=== PATIENT | male | born 1935 | race Caucasian/White ===

== ENCOUNTER 2016-10-31 16:27 | Emergency (ER) | payer MEDICARE, OTHER ==
[2016-10-31 16:42] VITALS: BP 158/76
--- NOTE | 2016-10-31 16:57 | ERNOTE ---
Head Injury HPI - Narrative Date of Service: 10/31/16 - General Injury to: head Time Seen by Provider: 10/31/16 16:44 Source: patient Exam Limitations: no limitations - Immun/Allergies/Home Medications Immunization: IMMUNIZATION HX Immunizations Up to Date Yes History of Influenza Vaccine Yes Hx Pneumococcal Vaccination Yes Allergies/Adverse Reactions: Allergies Allergy/AdvReac Type Severity Reaction Status Date / Time sulfamethoxazole Allergy Severe SHUT DOWN Verified 10/31/16 16:42 [From Bactrim] KIDNEYS trimethoprim [From Bactrim] Allergy Severe SHUT DOWN Verified 10/31/16 16:42 KIDNEYS Home Medications: HOME MEDICATIONS Aspirin [Aspir 81] 81 mg PO DAILY 08/19/12 [Last Taken Unknown] Cholecalciferol (Vitamin D3) [Vitamin D] 1 tab PO DAILY 08/19/12 [Last Taken Unknown] Furosemide 20 mg PO DAILY 08/19/12 [Last Taken Unknown] Metoprolol Tartrate 25 mg PO BID 08/19/12 [Last Taken 12/05/15 07:00] Simvastatin 40 mg PO HS 08/19/12 [Last Taken Unknown] Beta-Carotene(A) W-C , E/Min [Ocuvite] 1 tab PO DAILY 11/29/15 [Last Taken Unknown] Calcium Carb&Cit/Mag12/Vit D3 [Calcium 500 mg Tablet] 1 each PO BID 11/29/15 [ Last Taken Unknown] Fluticasone Propionate [Flonase] 1 - 2 spray NS DAILY PRN 11/29/15 [Last Taken Unknown] Glucosamine/Chondroitin Sulf A [Glucosamine Chondroitin Cap] 1 each PO BID 11/28 [Last Taken Unknown] Multivit-Min/FA/Lycopene/Lut [Centrum Silver Tablet] 1 each PO DAILY 11/29/15 [ Last Taken Unknown] - History of Present Illness Narrative: Pt. comes in with c/o falling and hitting the superior aspect of his head on the curb. Pt. denies any dizziness, nausea,vomiting, headache, vision changes, SOB, or CP. Pt. denies any prehospital treatment but does have a laceration that he placed pressure on that has not stopped bleeding. Review of Systems - Review of Systems Constitutional: Present: no symptoms reported. Absent: recent illness, fever, chills, fatigue, malaise, weight loss EYE: Present: no symptoms reported ENT: Present: no symptoms reported Respiratory: Present: no symptoms reported. Absent: shortness of breath, cough , wheezing Cardiology: Present: no symptoms reported. Absent: chest pain, palpitations, edema Gastrointestinal/Abdominal: Present: no symptoms reported. Absent: nausea, vomiting Genitourinary: Present: no symptoms reported Musculoskeletal: Present: no symptoms reported. Absent: back pain, neck pain, joint pain Skin: Present: other - laceration L superior scalp Neurological: Present: no symptoms reported. Absent: headache, dizziness/light- headedness, numbness, tingling All Other Systems: All systems neg except as marked - Patient's Past Medical History Patient History - Cardiac/Respiratory: Hypertension, Hyperlipidemia Patient History - Cancer: No Hx of Cancer Patient History - Surgical Procedures: Cataracts, Total Hip Replacement, Total Knee Replacement, Other Patient History - Other: None - Family History mom Family History - Medical: Family History - Cardiac/Respiratory: Coronary Heart Disease dad Family History - Medical: Family History - Cardiac/Respiratory: Coronary Heart Disease - Social History Living Situations: home Abuse History: No History of abuse Psych History: No pertinent hx Alcohol Use: rarely Drug Use: none - Immunizations Immunizations Up to Date: Yes Hx Pneumococcal Vaccination: Yes History of Influenza Vaccine: Yes Physical Exam - Physical Exam General Appearance: Present: wd/wn, alert, no apparent distress Eye Exam: Normal inspection: bilateral, PERRL: bilateral, EOMI: bilateral Ears, Nose, Throat: Present: normal ENT inspection, normal pharynx Neck: Present: normal inspection, nontender, supple, full range of motion. Absent: lymphadenopathy (R), lymphadenopathy (L), tender lateral, tender posterior midline Respiratory: Present: no respiratory distress, normal breath sounds, no accessory muscle use, chest nontender, lungs clear Cardiovascular/Chest: Present: regular rate, rhythm, no murmur, normal peripheral pulses Gastrointestinal/Abdominal: Present: normal bowel sounds, nontender Back Exam: Present: normal inspection, normal range of motion, no vertebral tenderness Extremity Exam: Present: normal inspection, non-tender, normal range of motion, no edema Neurological Exam: Present: alert, oriented, normal mood/affect, no motor/ sensory deficits Skin Exam: Present: normal color, warm/dry, other - Laceration Y shaped on superior forehead 2cm each arm of the Y in length ED Progress - Date and Time Seen: Date and Time: 10/31/16 17:43 Suggested to pt. that he use a cane when walking for strength and that he speak with his PCP reguarding fall prevention and possible PT for strengthening. - Results and Orders Patient's Lab Results:: I have reviewed the patient's lab results. - Vital Signs Patient's Vital Signs:: I have reviewed the patient's vital signs. Vital Signs: Vital Signs 10/31/16 16:38 Temperature 37.1 C Pulse Rate 75 Respiratory 12 Rate Blood Pressure 158/76 O2 Sat by Pulse 94 Oximetry - CT/Ultrasound CT/Ultrasound Narrative: CT head negative for acute abnormalities - Progress/Reassessment Chief Complaint: Head Injury Progress:: Improved Procedures Right Upper Anterior Head Anesthesia: 1% Lidocaine I & D Prep: betadine prep Wound's Depth/Shape: into subcutaneous, stellate Wound Explored: clean, to base, no foreign body Wound Intervention: irrigated w/saline, multiple flaps aligned Distal NVT: neuro/vasc intact Wound Repaired With: roxy Number of Sutures: 8 - roxy Layer Closure: Simple Estimated blood loss (ml): 15 Wound Dressing: sterile dressing applied Complications: Pt sera procedure well Comment: wound edges approximated well with roxy in area where sutures would have pulled and would have had delayed wound healing, I feel with roxy will have good wound healing and little scarring. Departure Clinical Impression: Laceration of scalp Qualifiers: Encounter type: initial encounter Qualified Code(s): S01.01XA - Laceration without foreign body of scalp, initial encounter - Departure Disposition: Home self-care Condition: Good Instructions: Laceration Care, Adult, [id number] Additional Instructions: Please follow up with primary care provider in 7-10 days for staple removal and wound check. Return to ER if you develop blurred or double vision, nausea or vomiting. Referrals: Rima Mcginnis MD [Primary Care Provider] -
[2016-10-31 17:35] LABS: Prothrombin Time (Patient) 11.4 Seconds (9.4-11.4)
[2016-10-31 17:36] LABS: INR 1.1 INR (0.90-1.10); Partial Thrombolplastin Time 29.1 Seconds (24-32)
--- OUTSIDE RECORDS SUMMARY | 2016-10-31 17:40 | XMS REPORT | Continuity of Care Document ---
:1935 Author Organization [facility] ([facility]) Address [address] [place] [address] Phone [phone] Care Team Providers Name Role Phone Rick Pascal Primary Care Provider [phone] Source Comments This disclosure is being made pursuant to the Care Everywhere program, applicable federal and state laws, and may not contain all informaitonavailable regarding this patient.[facility] ([facility]) Active Allergies and Adverse Reactions Allergen Noted Date Severity Reactions Comments Sulfamethoxazole 04/19/2010 Renal failure Current Medications Prescription Sig. Disp. Refills Start Date End Date Status ascorbic acid take 500 mg by mouth Active (ASCORBIC ACID) 500 mg daily. tablet aspirin 81 mg tablet take 81 mg by mouth Active daily. VIT C/DL-E Take 2 Caps by mouth Active AC/LUT/COPPER/ZNOX daily. (PRESERVISION PO) furosemide (LASIX) 20 Take 10 mg by mouth Active mg tablet daily. CALCIUM Take 1 Tab by mouth 2 Active CARBONATE/VITAMIN D3 times daily. (CALCIUM 500 + D, D3, PO) CYANOCOBALAMIN, Take by mouth. 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 (ELMER Garcia) Coronary artery disease, s/p by pass 04/19/2010 Overview: Formatting of this note may be different from the original. 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 Co dominant coronary anatomy 2. Critical with TD CAMILLA .96cm2. Kermit CAMILLA: .7cm2 3. Diffuse non occlusive LAD/LCX disease 4. High grade mid non dominant RCA stenosis ) - 01/21/2010 ECHO/MUGA: ARI (Normal left ventricle size, systolic function, and wall motion. Ejection fraction is 60%.Bioprosthetic aortic valve functioning normally. Minimal intracardiac air noted.) - 01/29/2010 Echo (Left ventricular systolic function is normal. Right ventricular systolic pressure is elevated at 40-50mmHg. There is a bioprosthetic aortic valve. The gradient is normal for this prosthetic aortic valve. There is no aortic valvular vegetation. ) - 04/15/2010 Echo (Normal EF, Pulmonic Peak 50 mmHg, Normal prosthetic valve function. Moderate PHTN) - 04/19/2012 Echo (EF 65%. Normal function bioprosthetic valve. Modest PHTN) - 04/19/2012 Echo (Normal left ventricle size, systolic function, and wall motion. Ejection fraction is 65%.There is moderate concentric left ventricular hypertrophy. The left atrium is mild to moderately dilated. There is mild mitral annular calcification. There is mild tricuspid regurgitation. There is a bioprosthetic aortic valve. The peak aortic valve gradient is 36 mmHg. The mean aortic valve gradient is 22 mmHg. The right ventricle appears normal in size. RV systolic estimated at 45-55 mm Hg. ) - 07/22/2013 Prostatic hypertrophy, benign 04/19/2010 Overview: Symptomatic, but has not required surgery Giant cell arteritis 04/17/2010 Overview: Dx 11/2005, +TA biopsy ([place], [place]). Presented with headache and brief vision loss that resolved on treatment, no PMR Sx in 2005. (Previous history of polymyalgia rheumatica in , treatedbriefly with prednisone.) Rx history: High dose iv solumedrol at dx 11/2005 Oral prednisone 11/2005 - late 2006 Prednisone restarted in 08/2011 for active PMR. Hypertension 04/17/2010 Septic arthritis of R thumb, March 2006 04/17/2010 Cervicalgia 07/30/2008 Degeneration of cervical intervertebral disc 07/30/2008 Cervical spondylosis with myelopathy 07/30/2008 Spinal stenosis in cervical region 07/30/2008 Arthrodesis status 07/30/2008 Carpal tunnel syndrome 10/15/2007 Aortic stenosis Carotid artery disease Overview: Formatting of this note may be different from the original. VASCULAR: Carotid Duplex (The Doppler flow velocities within the right internal carotid artery are within normal limits, less than 50% stenosis. The Doppler flow velocities within the left bulb are approaching 50% stenosis. The Doppler flow velocities within the left internal carotid artery are elevated, consistent with a 50 - 69% stenosis. ) - 01/16/2010 Carotid Duplex (Mild Disease in Bilateral ICAs, Vertebral: Bilateral Antegrade Flow) - 03/01/2013 Immunizations Name Dates Previously Given Next Due Influenza, unspecified 07/31/2008,08/20/2006 Pneumococcal, unspecified 07/31/2008 Social History Tobacco Use Types Packs/Day Years Used Date Former Smoker Quit: 08/31/1964 Alcohol Use Drinks/Week oz/Week Comments Yes Last Filed Vital Signs Vital Sign Reading Time Taken Blood Pressure 172/71 05/06/2012 12:51 PM CDT Pulse 61 05/06/2012 12:51 PM CDT Temperature 34.8 C (94.6 F) 05/06/2012 12:48 PM CDT Respiratory Rate 16 08/01/2008 8:00 AM [employer] Height 1.6 m (5' 3") 09/12/2011 3:18 PM [employer] Weight 82.9 kg (182 lb 12.2 oz) 05/06/2012 12:48 PM CDT Body Mass Index 32.38 05/06/2012 12:48 PM CDT Oxygen Saturation - - Plan of Care Health Maintenance Due Date Last Done Comments Hepatitis B Vaccine (1 of 3 - Primary 1935 Series) Tdap Vaccine 1944 Lipid Disorder Screening 1953 Td Vaccine 1953 Colonoscopy 1983 Zoster Vaccine 1993 Pneumococcal Vaccine (1 of 2 - PCV13) 1998 Influenza Vaccine: Seasonal (#1) 03/31/2016 07/31/2008, 08/20/2006 Results from Last 3 Months Not on file
== END 2016-10-31 17:55 | disposition home or self-care (01) ==
LOC: ER 16:27
PROC: 0JQ10ZZ Repair Face Subcutaneous Tissue and Fascia, Open Approach (ICD-10-PCS; principal; 2016-10-31)
DX: S01.01XA Laceration without foreign body of scalp, initial encounter (principal); X58.XXXA Exposure to other specified factors, initial encounter; Y92.410 Unspecified street and highway as the place of occurrence of the external cause; I10 Essential (primary) hypertension; E78.5 Hyperlipidemia, unspecified

== ENCOUNTER 2020-03-13 14:03 | Inpatient (IN) ==
[2020-03-13 14:36] LABS: Hematocrit 36.7 % (42.0-52.0); Hemoglobin 11.5 gm/dL (13.5-18.0); Mean Cell Volume 94.6 fl (78-100); Mean Corpuscular Hemoglobin 29.6 pg (27-31); Mean Corpuscular Hgb Conc 31.3 g/dl (32-36); Mean Platelet Volume 9.2 fl (8-11.3); Neutrophil # 7.5 K/mm3 (1.3-6.0); Neutrophil % 76.4 % (42-75.0); Platelet Count 189 K/mm3 (150-450); Red Blood Count 3.88 M/mm3 (4.7-6.0); Red Cell Distribution Width 13.3 % (11.5-14.0); White Blood Count 9.8 K/mm3 (4.0-10.5)
[2020-03-13 14:46] LABS: Prothrombin Time (Patient) 10.8 Seconds (9.1-10.7)
[2020-03-13 14:47] LABS: INR 1.09 INR (0.92-1.08); Partial Thrombolplastin Time 27.4 Seconds (24-32)
[2020-03-13 14:48] LABS: Albumin * 3.3 gm/dl (3.4-5.0); BUN/Creatinine Ratio 19.6 (9.0-21.6); Bilirubin, Total 1.1 mg/dL (0.0-1.1); Ca. Corrected For Albumin 9.2 mg/dL (8.4-10.2); Total Protein 6.5 gm/dL (6.2-8.2)
--- NOTE | 2020-03-13 15:46 | ERNOTE ---
Neuro HPI ER Record Date of Service: 03/13/20 Presenting Symptoms: weakness, parasthesia, facial droop, difficulty walking, difficulty standing Time Seen by Provider: 03/13/20 14:06 Source: EMS Exam Limitations: clinical condition Immunizations: IMMUNIZATION HX Immunizations Up to Date Yes History of Influenza Vaccine Yes Hx Pneumococcal Vaccination Yes Allergies/Adverse Reactions: Allergies Allergy/AdvReac Type Severity Reaction Status Date / Time sulfamethoxazole Allergy Severe SHUT DOWN Verified 02/23/20 09:48 [From Bactrim] KIDNEYS trimethoprim [From Bactrim] Allergy Severe SHUT DOWN Verified 02/23/20 09:48 KIDNEYS Home Medications: HOME MEDICATIONS Aspirin [Aspir 81] 81 mg PO DAILY 08/19/12 [Last Taken Unknown] Cholecalciferol (Vitamin D3) [Vitamin D] 1 tab PO DAILY 08/19/12 [Last Taken Unknown] Beta-Carotene(A) W-C , E/Min [Ocuvite] 1 tab PO DAILY 11/29/15 [Last Taken Unknown] Glucosamine/Chondroitin Sulf A [Glucosamine Chondroitin Cap] 1 ea PO BID 11/29/15 [Last Taken Unknown] Multivit-Min/FA/Lycopen/Lutein [Centrum Silver Tablet] 1 ea PO DAILY 11/29/15 [Last Taken Unknown] fluticasone propionate 50 mcg/actuation nasal spray,suspension 1 spray SARA DAILY #15.8 g 01/18/19 [Last Taken Unknown] metoprolol tartrate 25 mg tablet 25 mg PO BID #180 tab 04/13/19 [Last Taken Unknown] ascorbic acid (vitamin C) 1,000 mg tablet 1 g PO DAILY 01/17/20 [Last Taken Unknown] clopidogrel 75 mg tablet 75 mg PO DAILY 01/17/20 [Last Taken Unknown] cyanocobalamin (vitamin B-12) 500 mcg tablet 500 mcg PO DAILY 01/17/20 [Last Taken Unknown] ketoconazole 2 % shampoo 1 applic TP 3XW 01/17/20 [Last Taken Unknown] mometasone 0.1 % topical ointment 1 applic TP BID g 01/17/20 [Last Taken Unknown] mupirocin 2 % topical ointment 1 applic TP BID 01/17/20 [Last Taken Unknown] prednisone 20 mg tablet 20 mg PO DAILY 01/17/20 [Last Taken Unknown] simvastatin 20 mg tablet 20 mg PO HS 01/17/20 [Last Taken Unknown] triamcinolone acetonide 0.025 % topical cream 1 applic TP BID 01/17/20 [Last Taken Unknown] furosemide 20 mg tablet 40 mg PO BID 02/16/20 [Last Taken Unknown] potassium chloride 10 mEq capsule,extended release 10 meq PO DAILY #14 cap 02/16/20 [Last Taken Unknown] - History of Present Illness Narrative: patient presents to ed with c/o alterred mental status and right sided pararlysis, last seen normal last eventing Onset: cannot confirm onset Severity: severe - Character of Deficits New weakness: Present: RUE, RLE, facial (lt), general (diffuse) Additional Deficits: Present: difficulty swallowing, decrease ability to stand, decrease ability to walk Baseline Cognition: Present: alert, oriented x 4 Baseline Gait: Present: walks w/o assistance Review of Systems - Review of Systems Constitutional: Present: See HPI EYE: Present: no symptoms reported ENT: Present: no symptoms reported Respiratory: Present: no symptoms reported Cardiology: Present: no symptoms reported Gastrointestinal/Abdominal: Present: no symptoms reported Genitourinary: Present: no symptoms reported Musculoskeletal: Present: no symptoms reported Skin: Present: no symptoms reported Neurological: Present: See HPI, weakness Endocrine: Present: no symptoms reported, unexplained weight loss Psych: Present: no symptoms reported All Other Systems: All systems neg except as marked Medical History (Last Reviewed 03/13/20 @ 14:32 by Radha Villanueva RN) Atrial fibrillation CAD (coronary artery disease) HLD (hyperlipidemia) Hypertension Surgical History: Surgical History (Last Reviewed 03/13/20 @ 14:32 by Radha Villanueva RN) History of cardiac cath Onset Date: ~01/12/20 [facility] 3 stents History of hip surgery Hx of carpal tunnel repair Hx of cataract surgery Hx of total knee replacement Family History: Family History (Last Reviewed 03/13/20 @ 14:32 by Radha Villanueva RN) Other CVA (cerebral vascular accident) Cancer Social History: (Last Reviewed 03/13/20 @ 14:32 by Radha Villanueva RN) Social History: lives independently: Yes current occupational status: retired Tobacco: Smoking Status: Never smoker Alcohol: alcohol intake: never Substance Use: substance use type: does not use Dietary Habits: caffeine: No Physical Exam - Physical Exam General Appearance: Present: severe distress, lethargic Head Exam: Present: normal inspection, no evidence of injury Eye Exam: Normal inspection: bilateral, PERRL: bilateral, EOMI: bilateral Ears, Nose, Throat: Present: normal ENT inspection, normal pharynx Neck: Present: normal inspection, nontender Respiratory: Present: no respiratory distress, normal breath sounds, no accessory muscle use, chest nontender, lungs clear Cardiovascular/Chest: Present: regular rate, rhythm, no murmur, normal peripheral pulses Gastrointestinal/Abdominal: Present: normal bowel sounds, nontender, nondistended, soft Back Exam: Present: normal inspection, normal range of motion, no CVA tenderness Extremity Exam: Present: normal except - - flaccid paralysis to right side Neurological Exam: Present: facial droop, disoriented to person, disoriented to time, disoriented to place, disoriented to situation, other Skin Exam: Present: normal color, warm/dry Lymphatic Exam: Present: no adenopathy Karthikeyan Coma Scale - Assess Eye Opening: To Pain Motor: Withdraws to Pain Verbal: Inappropriate - Total Coma Scale Total: 9 Progress - Date and Time Seen: Date and Time: 03/13/20 15:42 condition unchanged - Results and Orders Patient's Lab Results:: I have reviewed the patient's lab results. - Vital Signs Patient's Vital Signs:: I have reviewed the patient's vital signs. Vital Signs: Vital Signs 03/13/20 14:04 03/13/20 14:10 03/13/20 14:28 Temperature 37.6 C Pulse Rate 90 73 70 Respiratory Rate 18 16 Blood Pressure 118/50 126/41 O2 Sat by Pulse Oximetry 93 95 03/13/20 14:35 Temperature Pulse Rate 78 Respiratory Rate 15 Blood Pressure 132/61 O2 Sat by Pulse Oximetry 95 - EKG EKG #1 EKG: NSR - CT/Ultrasound CT/Ultrasound Narrative: related process, no acute process - Progress/Reassessment Chief Complaint: CerebroVascular Accident Progress:: Unchanged - Transfer of Care Expected Disposition: Admit - case discussed with son who maintains patient a dnr and does not want any intervention except to give comfort measures Plan - Plan Plan: to admit to hospital Departure Clinical Impression: CVA (cerebral vascular accident) - Departure Disposition: Short Term Hospital Inpatient Condition: Serious Referrals: Rima Mcginnis MD [Primary Care Provider] -
[2020-03-13] MEDS: NORMAL SALINE 1,000 ML IV PRN (16:10)
[2020-03-13] MEDS ORDERED: guaiFENesin/DEXTROMETHORPHAN SYRUP PO PRN (16:36)
[2020-03-13] MEDS ORDERED: ACETAMINOPHEN 325 MG TABLET PO PRN (16:36)
[2020-03-13] MEDS ORDERED: ATROPINE SULFATE 50 DROP BTL SL PRN (16:36)
[2020-03-13] MEDS ORDERED: ONDANSETRON HCL/PF 2 MG/ML VIAL IV PRN (16:36)
[2020-03-13] MEDS ORDERED: LORazepam 0.5 MG TABLET PO PRN (16:36)
[2020-03-13] MEDS ORDERED: ALBUTEROL SULFATE 2.5 MG/0.5 ML VIAL.NEB IH PRN (16:36)
[2020-03-13] MEDS ORDERED: guaiFENesin 100 MG/5 ML SYRUP PO PRN ×2 (16:36→17:00)
[2020-03-13] MEDS ORDERED: LORazepam 2 MG/ML DISP.SYRIN IV PRN (16:36)
--- NOTE | 2020-03-13 17:11 | HP ---
Chief Complaint - Chief Complaint Date of Service: 03/13/20 Time of Service: 16:54 Chief Complaint: Patient is nonverbal History of Present Illness: 84-year-old male with past medical history of atrial fibrillation, chronic anticoagulation, hypertension, hyperlipidemia, polymyalgia rheumatica, status post aortic valve replacement, CAD with stent, was brought to the ER by EMS after the patient was discovered by his significant other alone in his home and totally dysphasic. The history is provided by the patient's significant other although it is limited since she does not live with him. She explains that she spoke to the patient on the phone the day before and he sounded like his usual self and was in his usual mood. However the following morning she went to visit the patient in his home and found him sitting in a chair staring into space. He did not appear to be in pain but when she attempted to speak to him the patient was unable to answer and when he did attempt to answer he had nonsensical speech that was difficult to understand. Patient also demonstrated right-sided weakness and was unable to move from the seated position in the chair. He has an extensive history of atrial fibrillation and is currently on Eliquis and underwent a aortic valve replacement for aortic stenosis although it is not clear when the surgery took place. His son who is a scalder working in [place] was contacted by the ERP and he confirmed the patient is DNR status and requested that the patient be made comfortable and placed on comfort measures. Medical History (Last Reviewed 03/13/20 @ 14:32 by Radha Villanueva RN) Atrial fibrillation CAD (coronary artery disease) HLD (hyperlipidemia) Hypertension Surgical History: Surgical History (Last Reviewed 03/13/20 @ 14:32 by Radha Villanueva RN) History of cardiac cath Onset Date: ~01/12/20 [facility] 3 stents History of hip surgery Hx of carpal tunnel repair Hx of cataract surgery Hx of total knee replacement Family History: Family History (Last Reviewed 03/13/20 @ 14:32 by Radha Villanueva RN) Other CVA (cerebral vascular accident) Cancer Social History: (Last Reviewed 03/13/20 @ 14:32 by Radha Villanueva RN) Social History: lives independently: Yes current occupational status: retired Tobacco: Smoking Status: Never smoker Alcohol: alcohol intake: never Substance Use: substance use type: does not use Dietary Habits: caffeine: No Peds Patient Hx - Developmental: No Pertinent Hx Peds Patient Hx - Medical: No Pertinent Hx Peds Patient Hx - Cardiac/Respiratory: No Pertinent Hx Peds Patient Hx - Surgical: No Surgical History Patient History - Cancer: No Hx of Cancer Review Of Systems (GEN) - Review of Systems Generalized/Overall Review: Present: Weakness EENTM: Present: No Symptoms Reported Respiratory: Present: No Symptoms Reported Cardiac: Present: No Symptoms Reported Abdominal: Present: No Symptoms Reported Genitourinary: Present: No Symptoms Reported Musculoskeletal: Present: No Symptoms Reported Neurological: Present: Weakness - Right-sided hemiparesis, dysarthria/dysphasia, Pre-existing Deficit Skin: Present: No Symptoms Reported Endocrine: Present: No Symptoms Reported Immunizations: IMMUNIZATION HX Immunizations Up to Date Yes History of Influenza Vaccine Yes Hx Pneumococcal Vaccination Yes Allergies/Adverse Reactions: Allergies Allergy/AdvReac Type Severity Reaction Status Date / Time sulfamethoxazole Allergy Severe SHUT DOWN Verified 02/23/20 09:48 [From Bactrim] KIDNEYS trimethoprim [From Bactrim] Allergy Severe SHUT DOWN Verified 02/23/20 09:48 KIDNEYS Home Medications: HOME MEDICATIONS Aspirin [Aspir 81] 81 mg PO DAILY 08/19/12 [Last Taken Unknown] Cholecalciferol (Vitamin D3) [Vitamin D] 1 tab PO DAILY 08/19/12 [Last Taken Unknown] Beta-Carotene(A) W-C , E/Min [Ocuvite] 1 tab PO DAILY 11/29/15 [Last Taken Unknown] Glucosamine/Chondroitin Sulf A [Glucosamine Chondroitin Cap] 1 ea PO BID 11/29/15 [Last Taken Unknown] Multivit-Min/FA/Lycopen/Lutein [Centrum Silver Tablet] 1 ea PO DAILY 11/29/15 [Last Taken Unknown] fluticasone propionate 50 mcg/actuation nasal spray,suspension 1 spray SARA DAILY #15.8 g 01/18/19 [Last Taken Unknown] metoprolol tartrate 25 mg tablet 25 mg PO BID #180 tab 04/13/19 [Last Taken Unknown] ascorbic acid (vitamin C) 1,000 mg tablet 1 g PO DAILY 01/17/20 [Last Taken Unknown] clopidogrel 75 mg tablet 75 mg PO DAILY 01/17/20 [Last Taken Unknown] cyanocobalamin (vitamin B-12) 500 mcg tablet 500 mcg PO DAILY 01/17/20 [Last Taken Unknown] ketoconazole 2 % shampoo 1 applic TP 3XW 01/17/20 [Last Taken Unknown] mometasone 0.1 % topical ointment 1 applic TP BID g 01/17/20 [Last Taken Unknown] mupirocin 2 % topical ointment 1 applic TP BID 01/17/20 [Last Taken Unknown] triamcinolone acetonide 0.025 % topical cream 1 applic TP BID 01/17/20 [Last Taken Unknown] furosemide 20 mg tablet 40 mg PO BID 02/16/20 [Last Taken Unknown] potassium chloride 10 mEq capsule,extended release 10 meq PO DAILY #14 cap 02/16/20 [Last Taken Unknown] Atorvastatin Calcium 40 mg PO DAILY 03/13/20 [Last Taken Unknown] Pantoprazole Sodium [Protonix] 40 mg PO DAILY 03/13/20 [Last Taken Unknown] Exam - Exam Vital Signs: Vital Signs - Last Taken Temp 37.6 C 03/13/20 14:04 Pulse 78 03/13/20 14:35 Resp 15 03/13/20 14:35 BP 132/61 03/13/20 14:35 Pulse Ox 95 03/13/20 14:35 Constitutional: Present: Alert, No distress, Elderly, Morbidly obese ENT Exam: Present: normal ENT inspection Eye Exam: bilateral eye: normal inspection, PERRL, EOMI Neck: Present: non-tender, full range of motion, supple, normal inspection, trachea midline Back Exam: Present: normal inspection, no CVA tenderness, no vertebral tenderness Breasts: Present: Exam deferred Respiratory: Present: chest non-tender, lungs clear, normal breath sounds, no respiratory distress, no accessory muscle use Cardiovascular/Chest: Present: no chest tenderness, no edema, no gallop, no JVD, no murmur, no rub, irregularly irregular Peripheral Pulses: carotid (R): 3+, carotid (L): 3+, dorsalis-pedis (R): 3+, dorsalis-pedis (L): 3+ Abdomen: Present: Normal bowel sounds, soft, nontender, nondistended, no rebound tenderness, no hepatospenomegaly, no masses, obese /Rectal: Present: Exam deferred Extremity: Present: non-tender, no pedal edema, no calf tenderness, normal capillary refill, pelvis stable, other - Erythema and desquamation of the skin of lower extremities with diffuse discoloration. Skin Exam: Present: warm/dry, no cyanosis, other - Large hematoma on left hemithorax and abdomen Lymphatic: Present: no adenopathy Neurologic: Present: alert, abnormal cerebellar tests, abnormal insole lip turner II-XII, abnormal gait, aphasia, facial droop, motor weakness, depressed affect, disoriented x 3 Appearance: Present: disheveled, impaired insight Eye contact: Present: cooperative, belligerent Diagnostic Studies: Abnormal Lab Results 03/13/20 03/13/20 03/13/20 Range/Units 14:29 14:29 14:34 RBC 3.88 L (4.7-6.0) M/mm3 Hgb 11.5 L (13.5-18.0) gm/dL Hct 36.7 L (42.0-52.0) % MCHC 31.3 L (32-36) g/dl Immature Gran % (Auto) 0.50 H (0.001-0.429) % Immature Gran # (Auto) 0.05 H (0.000-0.0310) K/mm3 Neutrophils % 76.4 H (42-75.0) % Lymphocytes % 12.2 L (20-51) % Monocytes % 10.3 H (0.0-9) % Neutrophils # 7.5 H (1.3-6.0) K/mm3 Lymphocytes # 1.20 L (1.5-3.5) k/mm3 ESR 22 H (0-10) mm/hr PT 10.8 H (9.1-10.7) Seconds INR (Anticoag Therapy) 1.09 H (0.92-1.08) INR BUN (6-23) mg/dL Creatinine (0.4-1.4) mg/dL Est GFR (Non-Af Amer) (60-130) mL/min Random Glucose (70-110) mg/dL Albumin (3.4-5.0) gm/dl 03/13/20 Range/Units 14:34 RBC (4.7-6.0) M/mm3 Hgb (13.5-18.0) gm/dL Hct (42.0-52.0) % MCHC (32-36) g/dl Immature Gran % (Auto) (0.001-0.429) % Immature Gran # (Auto) (0.000-0.0310) K/mm3 Neutrophils % (42-75.0) % Lymphocytes % (20-51) % Monocytes % (0.0-9) % Neutrophils # (1.3-6.0) K/mm3 Lymphocytes # (1.5-3.5) k/mm3 ESR (0-10) mm/hr PT (9.1-10.7) Seconds INR (Anticoag Therapy) (0.92-1.08) INR BUN 28 H (6-23) mg/dL Creatinine 1.43 H (0.4-1.4) mg/dL Est GFR (Non-Af Amer) 50 L (60-130) mL/min Random Glucose 146 H (70-110) mg/dL Albumin 3.3 L (3.4-5.0) gm/dl Laboratory Results WBC 9.8 K/mm3 (4.0-10.5) 03/13/20 14: RBC 3.88 M/mm3 (4.7-6.0) L 03/13/20 14:29 Hgb 11.5 gm/dL (13.5-18.0) L 03/13/20 14: Hct 36.7 % (42.0-52.0) L 03/13/20 14: MCV 94.6 fl (78-100) 03/13/20 14: MCH 29.6 pg (27-31) 03/13/20 14: MCHC 31.3 g/dl (32-36) L 03/13/20 14: RDW 13.3 % (11.5-14.0) 03/13/20 14: Plt Count 189 K/mm3 (150-450) 03/13/20 14: MPV 9.2 fl (8-11.3) 03/13/20 14:29 Immature Gran % (Auto) 0.50 % (0.001-0.429) H 03/13/20 14:29 Immature Gran # (Auto) 0.05 K/mm3 (0.000-0.0310) H 03/13/20 14: Neutrophils % 76.4 % (42-75.0) H 03/13/20 14:29 Lymphocytes % 12.2 % (20-51) L 03/13/20 14: Monocytes % 10.3 % (0.0-9) H 03/13/20 14: Eosinophils % 0.0 % (0.0-3.0) 03/13/20 14: Basophils % 0.6 % (0.0-1.0) 03/13/20 14: Nucleated RBC % 0.0 k/mm3 (0-1) 03/13/20 14: Neutrophils # 7.5 K/mm3 (1.3-6.0) H 03/13/20 14: Lymphocytes # 1.20 k/mm3 (1.5-3.5) L 03/13/20 14: Monocytes # 1.0 k/mm3 (0.0-1.0) 03/13/20 14: Eosinophils # 0.0 k/mm3 (0.0-0.7) 03/13/20 14: Absolute Basophils 0.1 k/mm3 (0.0-0.1) 03/13/20 14: ESR 22 mm/hr (0-10) H 03/13/20 14:29 PT 10.8 Seconds (9.1-10.7) H 03/13/20 14:34 INR (Anticoag Therapy) 1.09 INR (0.92-1.08) H 03/13/20 14:34 PTT (Dundy) 27.4 Seconds (24-32) 03/13/20 14:34 Sodium 140 mmol/L (132-142) 03/13/20 14:34 Plasma Sodium 141 mmol/L (130-142) 03/13/20 14:34 Potassium 4.0 mmol/L (3.4-4.6) 03/13/20 14:34 Chloride 102 mmol/L (97-106) 03/13/20 14:34 Carbon Dioxide 31.0 mmol/L (24-32.6) 03/13/20 14:34 Anion Gap 11.0 mmol/L (6.8-13.8) 03/13/20 14:34 BUN 28 mg/dL (6-23) H 03/13/20 14:34 Creatinine 1.43 mg/dL (0.4-1.4) H 03/13/20 14:34 Est GFR (Non-Af Amer) 50 mL/min (60-130) L 03/13/20 14:34 BUN/Creatinine Ratio 19.6 (9.0-21.6) 03/13/20 14:34 Random Glucose 146 mg/dL (70-110) H 03/13/20 14:34 Calcium 9.0 mg/dL (7.9-10.9) 03/13/20 14:34 Calcium Adj for Albumin 9.2 mg/dL (8.4-10.2) 03/13/20 14:34 Total Bilirubin 1.1 mg/dL (0.0-1.1) 03/13/20 14:34 AST 30 U/L (0-48) 03/13/20 14:34 ALT 26 U/L (19-67) 03/13/20 14:34 Alkaline Phosphatase 78 U/L (50-170) 03/13/20 14:34 Total Protein 6.5 gm/dL (6.2-8.2) 03/13/20 14:34 Albumin 3.3 gm/dl (3.4-5.0) L 03/13/20 14:34 Assessment/Plan - Narrative Narrative: Patient was evaluated and medical chart was reviewed and decision to admit to inpatient for an acute ischemic stroke was made. Patient is critically ill and he shows a poor clinical prognosis. Head CT revealed a significant acute lacunar stroke but no apparent bleeding. He has a significant right hemiparesis and is completely aphasic. There is a large hematoma on his left hemithorax and abdomen, I am not sure if this was the result of him falling into his chair or how long he has had this. However he does not appear to be in pain. The patient's son request that the patient be made comfortable and placed on comfort measures, he would not like treatment administered at this time given the patient's poor prognosis. The patient is DNR so no heroic measures will be made just as a family requested. Medications to make the patient as comfortable as possible have been ordered this includes anxiolytics, analgesics, antiemetics, and other symptomatic medications. - Assessment/Plan (1) Comfort measures only status Problem: Acute (2) CVA (cerebral vascular accident) Problem: Acute (3) CAD (coronary artery disease) Problem: Chronic Qualifiers: (4) Hypertension Problem: Chronic Qualifiers: (5) Atrial fibrillation Problem: Chronic Qualifiers: (6) Ulcer of left lower extremity with fat layer exposed Problem: Acute (7) DNR (do not resuscitate) Problem: Acute
[2020-03-14] MEDS: NORMAL SALINE 1,000 ML IV PRN ×2 (00:15→09:54)
--- NOTE | 2020-03-14 10:09 | PN ---
Subjective - Date and Time Seen Date: 03/14/20 Time: 10:01 Subjective Narrative: Patient AAO x 1 but follows command. Admiited for acute CVA and was put on comfort measures. aphasic. Objective - Review of Systems Misc: All systems neg except as marked - Unobtainable due to CVA/CPAP mask - Vitals Vitals: Last Vital Signs Temp 36.7 C 03/14/20 07:00 Pulse 69 03/14/20 07:00 Resp 20 03/14/20 07:00 BP 136/76 03/14/20 07:00 Pulse Ox 96 03/14/20 07:00 - Abnormal Lab Findings Abnormal Lab Findings: Abnormal Lab Results 03/13/20 03/13/20 03/13/20 Range/Units 14:29 14:29 14:34 RBC 3.88 L (4.7-6.0) M/mm3 Hgb 11.5 L (13.5-18.0) gm/dL Hct 36.7 L (42.0-52.0) % MCHC 31.3 L (32-36) g/dl Immature Gran % (Auto) 0.50 H (0.001-0.429) % Immature Gran # (Auto) 0.05 H (0.000-0.0310) K/mm3 Neutrophils % 76.4 H (42-75.0) % Lymphocytes % 12.2 L (20-51) % Monocytes % 10.3 H (0.0-9) % Neutrophils # 7.5 H (1.3-6.0) K/mm3 Lymphocytes # 1.20 L (1.5-3.5) k/mm3 ESR 22 H (0-10) mm/hr PT 10.8 H (9.1-10.7) Seconds INR (Anticoag Therapy) 1.09 H (0.92-1.08) INR BUN (6-23) mg/dL Creatinine (0.4-1.4) mg/dL Est GFR (Non-Af Amer) (60-130) mL/min Random Glucose (70-110) mg/dL Albumin (3.4-5.0) gm/dl 03/13/20 Range/Units 14:34 RBC (4.7-6.0) M/mm3 Hgb (13.5-18.0) gm/dL Hct (42.0-52.0) % MCHC (32-36) g/dl Immature Gran % (Auto) (0.001-0.429) % Immature Gran # (Auto) (0.000-0.0310) K/mm3 Neutrophils % (42-75.0) % Lymphocytes % (20-51) % Monocytes % (0.0-9) % Neutrophils # (1.3-6.0) K/mm3 Lymphocytes # (1.5-3.5) k/mm3 ESR (0-10) mm/hr PT (9.1-10.7) Seconds INR (Anticoag Therapy) (0.92-1.08) INR BUN 28 H (6-23) mg/dL Creatinine 1.43 H (0.4-1.4) mg/dL Est GFR (Non-Af Amer) 50 L (60-130) mL/min Random Glucose 146 H (70-110) mg/dL Albumin 3.3 L (3.4-5.0) gm/dl - Exam Constitutional: Present: Alert, Cooperative, Elderly ENT Exam: Present: hearing grossly normal Neck: Present: supple Respiratory: Present: decreased breath sounds, No rales, No wheezing Cardiovascular/Chest: Present: regular rate, rhythm, no JVD, systolic murmur Extremity: Present: no calf tenderness, pedal edema Neurologic: Present: other - AAO x1, right facial droop, aphasic, right hemiparesis Assessment/Plan Plan Narrative: Braulio was admitted for acute CVA and was placed on comfort measures per request of son. The adult protective caseworker was able to talk to him and he did want patient to have speech therapy, PT/ OT evaluation and treatment but did not want to have MRI of the brain, carotid ultrasound, echocardiogram done as part of the work-up for his CVA. We will resume his oral medications once speech therapy evaluates him and gives their recommendation. - Problems/Diagnosis (1) CVA (cerebral vascular accident) Problem: Acute Qualifiers: CVA mechanism: unspecified Qualified Code(s): I63.9 - Cerebral infarction, unspecified (2) DNR (do not resuscitate) Problem: Acute (3) Ulcer of left lower extremity with fat layer exposed Problem: Chronic (4) Venous insufficiency of both lower extremities Problem: Chronic (5) Aortic valve stenosis Problem: Chronic Qualifiers: Cardiac valve disease etiology: etiology unspecified Qualified Code(s): I35.0 - Nonrheumatic aortic (valve) stenosis (6) CAD (coronary artery disease) Problem: Chronic Qualifiers: (7) Hypercholesterolemia Problem: Chronic (8) Hypertension Problem: Chronic Qualifiers: (9) Polymyalgia rheumatica Problem: Chronic (10) Pulmonary hypertension Problem: Chronic (11) Carotid artery stenosis Problem: Chronic Qualifiers: Laterality: bilateral Qualified Code(s): I65.23 - Occlusion and stenosis of bilateral carotid arteries
[2020-03-14] MEDS: DEXTROSE 5%-NORMAL SALINE 1,000 ML IV PRN ×2 (10:46→23:58)
[2020-03-14] MEDS ORDERED: ALBUTEROL SULFATE 200 PUFF INHALER IH PRN (12:04)
[2020-03-14] MEDS ORDERED: ALBUTEROL SULFATE/IPRATROPIUM 3 ML NEBU IH PRN (12:06)
[2020-03-14] MEDS: FUROSEMIDE 10 MG/ML VIAL IV SCH (12:20)
--- NOTE | 2020-03-14 16:00 | PN ---
Mellisa Note - Interim Date: 03/14/20 Time: 15:56 Narrative: 03/14/20 15:56 Patient has oropharyngeal dysphagia per ST and is at increased risk for aspiration. Continue NPO and will need NGT tube and later PEG tube for nutrition and oral medications. Suction secretions PRN. CXR ordered to r/o aspiration as per nurse he was having stridor- no aspiration. IV lasix given, breathing treatments started. Per director of casework she talked to the son about NGT tube and he was going to talk first with his other siblings.
[2020-03-14] MEDS ORDERED: ASPIRIN 300 MG SUPP.RECT RC ONE ×2 (17:49→19:13)
[2020-03-14] MEDS: METOPROLOL TARTRATE 1 MG/ML AMPUL IV SCH (20:30)
[2020-03-15 06:42] LABS: Hematocrit 37.7 % (42.0-52.0); Hemoglobin 11.5 gm/dL (13.5-18.0); Mean Cell Volume 96.2 fl (78-100); Mean Corpuscular Hemoglobin 29.3 pg (27-31); Mean Corpuscular Hgb Conc 30.5 g/dl (32-36); Neutrophil # 7.1 K/mm3 (1.3-6.0); Neutrophil % 74.9 % (42-75.0); Platelet Count 194 K/mm3 (150-450); Red Blood Count 3.92 M/mm3 (4.7-6.0); Red Cell Distribution Width 13.6 % (11.5-14.0); White Blood Count 9.5 K/mm3 (4.0-10.5)
[2020-03-15 06:43] LABS: Anion Gap 9.4 mmol/L (6.8-13.8); BUN/Creatinine Ratio 15.1 (9.0-21.6); Calcium * 8.4 mg/dL (7.9-10.9); Carbon Dioxide 30.1 mmol/L (24-32.6); Estimated Creat Clear 40.3; Potassium 3.5 mmol/L (3.4-4.6)
[2020-03-15] MEDS: FUROSEMIDE 10 MG/ML VIAL IV SCH (08:10)
[2020-03-15] MEDS: METOPROLOL TARTRATE 1 MG/ML AMPUL IV SCH (08:14)
--- NOTE | 2020-03-15 08:38 | PN ---
Subjective - Date and Time Seen Date: 03/15/20 Time: 08:31 Subjective Narrative: Patient is AAo x 1. Does not follow command and only answers with OK to every question. Objective - Review of Systems Misc: All systems neg except as marked - Unobtainable due to CVA - Vitals Vitals: Last Vital Signs Temp 38.0 C 03/15/20 06:39 Pulse 61 03/15/20 08:14 Resp 20 03/15/20 06:39 BP 152/68 H 03/15/20 08:14 Pulse Ox 96 03/15/20 06:39 - Abnormal Lab Findings Abnormal Lab Findings: Abnormal Lab Results 03/15/20 03/15/20 Range/Units 06:28 06:28 RBC 3.92 L (4.7-6.0) M/mm3 Hgb 11.5 L (13.5-18.0) gm/dL Hct 37.7 L (42.0-52.0) % MCHC 30.5 L (32-36) g/dl Lymphocytes % 10.8 L (20-51) % Monocytes % 12.8 H (0.0-9) % Neutrophils # 7.1 H (1.3-6.0) K/mm3 Lymphocytes # 1.03 L (1.5-3.5) k/mm3 Monocytes # 1.2 H (0.0-1.0) k/mm3 Sodium 145 H (132-142) mmol/L Plasma Sodium 146 H (130-142) mmol/L Chloride 109 H (97-106) mmol/L Random Glucose 133 H (70-110) mg/dL - Exam Constitutional: Present: Alert - AAo x 1 ENT Exam: Present: hearing grossly normal Neck: Present: supple Respiratory: Present: decreased breath sounds, No rales, No wheezing Cardiovascular/Chest: Present: regular rate, rhythm, no JVD, no murmur Abdomen: Present: Normal bowel sounds, soft, nontender, nondistended Extremity: Present: no pedal edema, no calf tenderness Neurologic: Present: other - AAO x1, positive facial droop, right hemiparesis Assessment/Plan Plan Narrative: PT is recommending in patient rehab. Patient NPO. Son is going to have Zoom conference with family about Tube feeding-NGT to PEG. and discuss about in patient rehab per case picker. Continue with PT/OT/ST. No MRI/CUS/Echo per request of son. In the meantime continue with ASA RC and IV lopressor for SBP >140. Will resume his other oral meds if he gets a NGT or PEG tube. - Problems/Diagnosis (1) CVA (cerebral vascular accident) Problem: Acute Qualifiers: CVA mechanism: unspecified Qualified Code(s): I63.9 - Cerebral infarction, unspecified (2) DNR (do not resuscitate) Problem: Acute (3) Ulcer of left lower extremity with fat layer exposed Problem: Chronic (4) Venous insufficiency of both lower extremities Problem: Chronic (5) Aortic valve stenosis Problem: Chronic Qualifiers: Cardiac valve disease etiology: etiology unspecified Qualified Code(s): I35.0 - Nonrheumatic aortic (valve) stenosis (6) CAD (coronary artery disease) Problem: Chronic Qualifiers: (7) Hypercholesterolemia Problem: Chronic (8) Hypertension Problem: Chronic Qualifiers: (9) Polymyalgia rheumatica Problem: Chronic (10) Pulmonary hypertension Problem: Chronic (11) Carotid artery stenosis Problem: Chronic Qualifiers: Laterality: bilateral Qualified Code(s): I65.23 - Occlusion and stenosis of bilateral carotid arteries
[2020-03-15] MEDS ORDERED: ASPIRIN 300 MG SUPP.RECT RC ONE (08:45)
[2020-03-15] MEDS: METOPROLOL TARTRATE 1 MG/ML AMPUL IV PRN ×2 (09:12→17:38)
[2020-03-15] MEDS: DEXTROSE 5%-NORMAL SALINE 1,000 ML IV PRN (13:26)
[2020-03-15] MEDS: ENALAPRILAT DIHYDRATE 1.25 MG/ML VIAL IV SCH ×2 (16:35→22:48)
[2020-03-16] MEDS: DEXTROSE 5%-NORMAL SALINE 1,000 ML IV PRN ×2 (02:42→16:12)
[2020-03-16] MEDS: ENALAPRILAT DIHYDRATE 1.25 MG/ML VIAL IV SCH ×3 (05:31→18:27)
--- NOTE | 2020-03-16 08:20 | PN ---
Subjective - Date and Time Seen Date: 03/16/20 Time: 09:33 Subjective Narrative: Patient is able to follow commands at times but most of his answers are still just OK. Talked to Dr. Vincenzo Slaughter , IM, his son and he is ok to do Dobhoff feeding tube. Objective - Review of Systems Misc: All systems neg except as marked - unobtainable due to CVA - Vitals Vitals: Last Vital Signs Temp 36.8 C 03/16/20 06:19 Pulse 62 03/16/20 06:25 Resp 18 03/16/20 06:25 BP 155/72 H 03/16/20 06:19 Pulse Ox 100 03/16/20 06:25 - Exam Constitutional: Present: Alert - AAO x 1, Elderly ENT Exam: Present: hearing grossly normal Neck: Present: supple Respiratory: Present: decreased breath sounds, No rales, No wheezing Cardiovascular/Chest: Present: regular rate, rhythm, no gallop, no JVD Abdomen: Present: Normal bowel sounds, soft, nontender, nondistended Extremity: Present: no pedal edema, no calf tenderness Neurologic: Present: other - AAo x1, facial drooping, difficulty of swallowing, right hemiparesis Assessment/Plan Plan Narrative: Braulio was admitted for an acute CVA with Broca's aphasia, dysphagia, right hemiparesis and was initially just on comfort measures. This was reversed and patient was referred to PT/OT/ST. No diagnostic tests were done like MRI, carotid ultrasound, echo with bubble study per family request. Patient failed swallowing test and gets aspirations. Family now has decided that we can put Dobbhoff feeding tube and will restart his oral medications through NG tube. He is also awaiting transfer for inpatient rehab in [place]. We will also refer her to student accounts coordinator/ dietitian for feeding recommendation. - Problems/Diagnosis (1) CVA (cerebral vascular accident) Problem: Acute Qualifiers: CVA mechanism: unspecified Qualified Code(s): I63.9 - Cerebral infarction, unspecified (2) DNR (do not resuscitate) Problem: Acute (3) Ulcer of left lower extremity with fat layer exposed Problem: Chronic (4) Venous insufficiency of both lower extremities Problem: Chronic (5) Aortic valve stenosis Problem: Chronic Qualifiers: Cardiac valve disease etiology: etiology unspecified Qualified Code(s): I35.0 - Nonrheumatic aortic (valve) stenosis (6) CAD (coronary artery disease) Problem: Chronic Qualifiers: (7) Hypercholesterolemia Problem: Chronic (8) Hypertension Problem: Chronic Qualifiers: (9) Polymyalgia rheumatica Problem: Chronic (10) Pulmonary hypertension Problem: Chronic (11) Carotid artery stenosis Problem: Chronic Qualifiers: Laterality: bilateral Qualified Code(s): I65.23 - Occlusion and stenosis of bilateral carotid arteries
[2020-03-16] MEDS: FUROSEMIDE 10 MG/ML VIAL IV SCH (09:42)
[2020-03-16] MEDS: ENOXAPARIN SODIUM 40 MG/0.4 ML SYRG SC SCH (09:49)
[2020-03-16] MEDS: METOPROLOL TARTRATE 1 MG/ML AMPUL IV SCH ×2 (09:51→22:21)
[2020-03-16] MEDS ORDERED: CLOPIDOGREL BISULFATE 75 MG TABLET NG SCH (15:15)
[2020-03-16] MEDS ORDERED: ROSUVASTATIN CALCIUM 20 MG TABLET GT SCH (15:30)
[2020-03-16] MEDS: PANTOPRAZOLE SODIUM 40 MG in NORMAL SALINE 100 ML IV SCH (18:30)
[2020-03-16] MEDS ORDERED: METOPROLOL TARTRATE 25 MG TABLET NG SCH (21:00)
[2020-03-17] MEDS: ENALAPRILAT DIHYDRATE 1.25 MG/ML VIAL IV SCH ×4 (00:08→17:46)
[2020-03-17] MEDS: DEXTROSE 5%-NORMAL SALINE 1,000 ML IV PRN (05:36)
[2020-03-17 07:38] LABS: Hematocrit 39.4 % (42.0-52.0); Hemoglobin 11.9 gm/dL (13.5-18.0); Mean Cell Volume 96.6 fl (78-100); Mean Corpuscular Hemoglobin 29.2 pg (27-31); Mean Corpuscular Hgb Conc 30.2 g/dl (32-36); Mean Platelet Volume 9.7 fl (8-11.3); Neutrophil # 6.1 K/mm3 (1.3-6.0); Neutrophil % 66.7 % (42-75.0); Platelet Count 203 K/mm3 (150-450); Red Blood Count 4.08 M/mm3 (4.7-6.0); Red Cell Distribution Width 13.5 % (11.5-14.0); White Blood Count 9.1 K/mm3 (4.0-10.5)
[2020-03-17 07:44] LABS: Anion Gap 9.1 mmol/L (6.8-13.8); BUN/Creatinine Ratio 12.3 (9.0-21.6); Calcium * 8.6 mg/dL (7.9-10.9); Estimated Creat Clear 37.4; Potassium 3.1 mmol/L (3.4-4.6)
[2020-03-17] MEDS ORDERED: BETA-CAROTENE(A) W-C , E/MIN 1 TAB TABLET NG SCH (09:00)
[2020-03-17] MEDS ORDERED: ASPIRIN 81 MG TAB.CHEW NG SCH (09:00)
[2020-03-17] MEDS: ENOXAPARIN SODIUM 40 MG/0.4 ML SYRG SC SCH (09:31)
[2020-03-17] MEDS: FUROSEMIDE 10 MG/ML VIAL IV SCH (09:56)
[2020-03-17] MEDS: METOPROLOL TARTRATE 1 MG/ML AMPUL IV SCH ×2 (09:56→20:13)
[2020-03-17] MEDS ORDERED: POTASSIUM CHLORIDE 20 MEQ in DEXTROSE 5%-NORMAL SALINE 990 ML IV SCH (10:00)
--- NOTE | 2020-03-17 11:29 | PN ---
Subjective - Date and Time Seen Date: 03/17/20 Time: 08:10 Subjective Narrative: Braulio Slaughter is an 84-year-old male patient of Dr. Mcginnis whose had a recent stroke. He is having difficulty with swallowing and handling anything oral and so all of his oral medicines are on hold. They place a Dobbhoff feeding tube in but he pulled it out. Nursing spoke with the family member about whether they wanted to proceed with a PEG tube. They have decided they wish to do so and wished him to go to the [facility] to have that placed. They then want him to go into the stroke rehab facility there. We are awaiting transfer directions from the [facility] to that end. This morning's lab shows a sodium has increased each day and today is 148. He is on D5 normal saline with 20 of potassium. I will change that to D5 LR with 20 of potassium and continue at 100 cc/h for now. His heart rate has been in the upper 50s consistently. His blood pressure is staying a little high at 167/68. His oxygen saturation is 96% on room air with a temperature of 36.9 degrees. There are no other nursing concerns reported to me. Mr. Slaughter is nonverbal with me. Objective - Review of Systems Generalized/Overall Review: Reports: Weakness EENTM: Reports: No Symptoms Reported Respiratory: Reports: Cough, Shortness of Breath Cardiac: Reports: No Symptoms Reported, Other - History of recent stroke Abdominal: Reports: No Symptoms Reported, Other - Unable to swallow effectively without aspirating Genitourinary Symptoms: Reports: No Symptoms Reported Musculoskeletal Complaints: Reports: No Symptoms Reported Neurological: Reports: Weakness - Right sided hemiparesis. Expressive aphasia and I suspect receptive aphasia as well. Skin: Reports: No Symptoms Reported Endocrine: Reports: No Symptoms Reported - Vitals Vitals: Last Vital Signs Temp 36.9 C 03/17/20 10:45 Pulse 57 L 03/17/20 10:45 Resp 18 03/17/20 10:45 BP 167/68 H 03/17/20 10:45 Pulse Ox 96 03/17/20 10:45 - Abnormal Lab Findings Abnormal Lab Findings: Abnormal Lab Results 03/17/20 03/17/20 Range/Units 07:20 07:20 RBC 4.08 L (4.7-6.0) M/mm3 Hgb 11.9 L (13.5-18.0) gm/dL Hct 39.4 L (42.0-52.0) % MCHC 30.2 L (32-36) g/dl Immature Gran # (Auto) 0.04 H (0.000-0.0310) K/mm3 Lymphocytes % 17.2 L (20-51) % Monocytes % 13.8 H (0.0-9) % Neutrophils # 6.1 H (1.3-6.0) K/mm3 Monocytes # 1.3 H (0.0-1.0) k/mm3 Sodium 148 H (132-142) mmol/L Plasma Sodium 148 H (130-142) mmol/L Potassium 3.1 L (3.4-4.6) mmol/L Chloride 110 H (97-106) mmol/L Random Glucose 120 H (70-110) mg/dL - Exam Constitutional: Present: Somnolent, Obtunded, Elderly ENT Exam: Present: normal ENT inspection, hearing grossly normal, pharynx normal Neck: Present: non-tender, limited range of motion Respiratory: Present: chest non-tender, lungs clear, normal breath sounds, no respiratory distress, no accessory muscle use Cardiovascular/Chest: Present: normal peripheral pulses, regular rate, rhythm, no chest tenderness, no edema Abdomen: Present: Normal bowel sounds, soft, nontender, nondistended, no rebound tenderness, no hepatospenomegaly, no masses /Rectal: Present: Exam deferred Extremity: Present: other - Flaccid paralysis right side Skin Exam: Present: normal color, warm/dry, no cyanosis Lymphatic: Present: no adenopathy Neurologic: Present: motor weakness - Right side Appearance: Present: appropriate appearance, other - Unable to assess insight or memory Eye contact: Present: other - Patient is sleeping Thoughts: Present: other - Unable to assess at this time Assessment/Plan Plan Narrative: 1. Continue observation. 2. Awaiting transfer to the [facility] for placement of PEG tube and then admission to their stroke rehab facility 3. Changes IV solution to D5 LR due to rising sodium 4. Excellent skin care required. 5. Auscultate chest frequently for change in lung sounds as he is high risk for aspiration pneumonia. - Problems/Diagnosis (1) Hypertension Problem: Chronic Qualifiers: (2) Atrial fibrillation Problem: Chronic Qualifiers: (3) Aortic valve stenosis Problem: Chronic Qualifiers: Cardiac valve disease etiology: etiology unspecified Qualified Code(s): I35.0 - Nonrheumatic aortic (valve) stenosis (4) CVA (cerebral vascular accident) Problem: Acute Qualifiers: CVA mechanism: unspecified Qualified Code(s): I63.9 - Cerebral infarction, unspecified (5) Pulmonary hypertension Problem: Chronic (6) Carotid artery stenosis Problem: Chronic Qualifiers: Laterality: bilateral Qualified Code(s): I65.23 - Occlusion and stenosis of bilateral carotid arteries
[2020-03-17] MEDS ORDERED: POTASSIUM CHLORIDE 20 MEQ in DEXTROSE 5%-LACTATED RINGERS 1,000 ML IV SCH (12:00)
[2020-03-17] MEDS: PANTOPRAZOLE SODIUM 40 MG in NORMAL SALINE 100 ML IV SCH (15:38)
--- NOTE | 2020-03-17 17:04 | DS ---
Transfer Discharge Summary - Diagnosis(s)/Problems (1) Hypertension Problem: Chronic (2) Atrial fibrillation Problem: Chronic (3) Aortic valve stenosis Problem: Chronic (4) CVA (cerebral vascular accident) Problem: Acute (5) Pulmonary hypertension Problem: Chronic (6) Carotid artery stenosis Problem: Chronic - Course Description of Stay: 84-year-old male with past medical history of atrial fibrillation, chronic anticoagulation, hypertension, hyperlipidemia, polymyalgia rheumatica, status post aortic valve replacement, CAD with stent, was brought to the ER by EMS after the patient was discovered by his significant other alone in his home and totally dysphasic. The history is provided by the patient's significant other although it is limited since she does not live with him. She explains that she spoke to the patient on the phone the day before and he sounded like his usual self and was in his usual mood. However the following morning she went to visit the patient in his home and found him sitting in a chair staring into space. He did not appear to be in pain but when she attempted to speak to him the patient was unable to answer and when he did attempt to answer he had nonsensical speech that was difficult to understand. Patient also demonstrated right-sided weakness and was unable to move from the seated position in the chair. He has an extensive history of atrial fibrillation and is currently on Eliquis and underwent a aortic valve replacement for aortic stenosis although it is not clear when the surgery took place. His son who is a chili pepper grinder working in [place] was contacted by the ERP and he confirmed the patient is DNR status and requested that the patient be made comfortable and placed on comfort measures. Since then hes had a swallowing study that he failed and it was determined he should not try to drink or eat poorly. They placed a Dobhoff feeding tube but he pulled it out. Nursing then talked to the family and discussed whether they wish to pursue A peg tube and they have elected to do so. He was then referred to the [facility] and we have been waiting on bed availability there. I received a call this afternoon and spoke with Dr. Lofton and she is in agreement to accept in transfer. Procedures Performed: see notes below - placement of Dobbhoff feeding tube - Results and Findings Results and Findings: Laboratory Results - last 24 hr 03/17/20 03/17/20 07:20 07:20 WBC 9.1 RBC 4.08 L Hgb 11.9 L Hct 39.4 L MCV 96.6 MCH 29.2 MCHC 30.2 L RDW 13.5 Plt Count 203 MPV 9.7 Immature Gran % (Auto) 0.40 Immature Gran # (Auto) 0.04 H Neutrophils % 66.7 Lymphocytes % 17.2 L Monocytes % 13.8 H Eosinophils % 1.1 Basophils % 0.8 Nucleated RBC % 0.0 Neutrophils # 6.1 H Lymphocytes # 1.57 Monocytes # 1.3 H Eosinophils # 0.1 Absolute Basophils 0.1 Sodium 148 H Plasma Sodium 148 H Potassium 3.1 L Chloride 110 H Carbon Dioxide 32.0 Anion Gap 9.1 BUN 14 Creatinine 1.14 Est GFR (Non-Af Amer) 65 BUN/Creatinine Ratio 12.3 Random Glucose 120 H Calcium 8.6 - Medications Medications: Active Medications Enalaprilat (Vasotec) 0.625 mg IV Q6H [facility] Stop: 04/14/20 16:16 Last Admin: 03/17/20 10:01 Dose: 0.625 mg Documented by: Enoxaparin Sodium (Lovenox) 40 mg SC Q24H [facility] Stop: 04/15/20 09:16 Last Admin: 03/17/20 09:31 Dose: 40 mg Documented by: Furosemide (Lasix) 20 mg IV DAILY [facility] Stop: 04/15/20 09:01 Last Admin: 03/17/20 09:56 Dose: Not Given Documented by: Pantoprazole Sodium 40 mg/ (Sodium Chloride) 100 mls @ 400 mls/hr IV Q24H [facility] Stop: 04/15/20 15:16 Last Infusion: 03/17/20 15:55 Dose: Infused Documented by: Potassium Chloride 20 meq/ (Dextrose/Lactated Ringer's) 1,010 mls @ 100 mls/hr IV .Q10H6M [facility] Stop: 04/16/20 12:01 Last Admin: 03/17/20 12:25 Dose: 100 mls/hr Documented by: Metoprolol Tartrate (Lopressor) 5 mg IV BID [facility] Stop: 04/15/20 09:01 Last Admin: 03/17/20 09:56 Dose: Not Given Documented by: Discontinued Medications Aspirin (Aspirin Suppository) 300 mg RC ONCE ONE Stop: 03/14/20 17:50 Last Admin: 03/14/20 19:16 Dose: 300 mg Documented by: Aspirin (Aspirin Suppository) 300 mg RC ONCE ONE Stop: 03/15/20 08:46 Last Admin: 03/15/20 09:11 Dose: 300 mg Documented by: Clopidogrel Bisulfate (Plavix) 75 mg NG DAILY [facility] Stop: 04/15/20 15:16 Last Admin: 03/16/20 17:44 Dose: Not Given Documented by: Furosemide (Lasix) 40 mg IV DAILY [facility] Stop: 04/13/20 12:01 Last Admin: 03/15/20 08:10 Dose: 40 mg Documented by: Sodium Chloride (Sodium Chloride 0.9%) 1,000 mls @ 125 mls/hr IV .Q8H PRN PRN Reason: HYDRATION Stop: 04/12/20 15:52 Last Infusion: 03/14/20 10:46 Dose: Infused Documented by: Dextrose/Sodium Chloride (Dextrose 5%-0.9% Ns) 1,000 mls @ 75 mls/hr IV .[id number] PRN PRN Reason: HYDRATION Stop: 04/13/20 10:10 Last Infusion: 03/17/20 11:10 Dose: Infused Documented by: Potassium Chloride 20 meq/ (Dextrose/Sodium Chloride) 1,000 mls @ 100 mls/hr IV .Q10H [facility] Stop: 04/16/20 10:01 Last Infusion: 03/17/20 11:10 Dose: Infused Documented by: Metoprolol Tartrate (Lopressor) 5 mg IV BID [facility] Stop: 03/15/20 21:01 Last Admin: 03/15/20 08:14 Dose: Not Given Documented by: Metoprolol Tartrate (Lopressor) 5 mg IV BID PRN PRN Reason: Hypertension Stop: 03/15/20 21:01 Last Admin: 03/15/20 17:38 Dose: 5 mg Documented by: - Disposition Disposition: Home self-care Condition: Serious
[2020-03-17 20:15] VITALS: BP 177/71
== END 2020-03-17 20:30 | disposition short-term general hospital (02) | DRG 65 ==
LOC: ER 14:03 → MS 15:39
PROVIDERS: ADMIT Family Medicine; ATTEND Internal Medicine
CPT/HCPCS: 36415; 70450; 71010; 71045; 80048; 80053; 85025; 85610; 85652; 85730; 92507; 92523; 92610; 93005; 94660; 97110; 97116; 97140; 97162; 97166; 97535; 99284; 99285